=== PATIENT | female | born 1945 | race Caucasian/White ===

== ENCOUNTER 2022-01-16 11:15 | Outpatient (RCR) | payer MEDICARE, BC, SELFPAY | END 2022-08-14 16:20 | disposition home or self-care (01) | PROVIDERS: PCP Family Medicine; Visit Provider Family Medicine | DX: G60.8 Other hereditary and idiopathic neuropathies (principal); R26.9 Unspecified abnormalities of gait and mobility; Z51.89 Encounter for other specified aftercare | CPT/HCPCS: 97110; 97162 ==

== ENCOUNTER 2022-08-13 11:24 | Emergency (ER) | payer MEDICARE, BC, SELFPAY ==
[2022-08-13 11:27] VITALS: BP 153/72; PULSE 74; RESP 18; TEMP 37; O2SAT 97; BMI 29.7
--- NOTE | 2022-08-13 14:10 | CRLHL7_ITS ---
For Patients: As a result of the Cures Act, medical imaging exams and procedure reports are released immediately into your electronic medical record. You may view this report before your referring provider. If you have questions, please contact your health care provider. INDICATION: right calf pain, recent long travel TECHNIQUE: Ultrasound venous duplex right lower extremity. COMPARISON: None. FINDINGS: The right common femoral, superficial femoral, deep femoral, popliteal, posterior tibial, and greater saphenous veins are fully compressible with normal waveforms. The contralateral left common femoral artery is fully compressible with normal waveform. No masses evident. IMPRESSION: Normal ultrasound of the right lower extremity veins. Dictated by: Natan Rizzo MD @ 08/13/2022 15:30:21 (Electronically Signed)
--- NOTE | 2022-08-13 15:43 | ED_ITS ---
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 Emilee notes that she walks on the treadmill regularly and that yesterday she had the onset of right calf pain that was severe enough that she did not sleep overnight. She notes that in the past she has sought medical attention for right ankle pain and was told it was arthritis. She cannot recall any specific injury to the ankle or Achilles tendon while walking on the treadmill but had recently traveled an extensive distance to [place] via car and of course was worried about DVT. She does not have any shortness of breath fever or chills. Upon initial presentation there was an extended wait in the emergency room and an ultrasound was ordered prior to me seeing her in the hopes of expediting her visit to the emergency room. Eventually upon her return from ultrasound she was moved to [place] [id number]. I did just receive the results of her ultrasound when I was contacted by the nurse stating that Emilee was threatening to leave. I did speak with Emilee explaining about the weight and apologizing for her weight. She states to me ?I have been here for fucking hours and I just want to go?. Upon further discussion she states she feels really bad that there are a lot of legitimate emergencies here and that she is taking up are time. She agrees to talk to me and allows me to do an examination. Related Data Home Medications Medication Instructions Recorded Confirmed amlodipine 10 mg tablet 10 mg PO DAILY 07/23/22 08/13/22 atorvastatin 10 mg tablet 10 mg PO DAILY 07/23/22 08/13/22 furosemide 20 mg tablet 20 mg PO BID 07/23/22 08/13/22 gabapentin 400 mg capsule 400 mg PO 3XD 07/23/22 08/13/22 losartan 100 mg tablet 100 mg PO DAILY 07/23/22 08/13/22 Allergies Allergy/AdvReac Type Severity Reaction Status Date / Time ibuprofen Allergy Unknown Verified 07/23/22 18:50 lisinopril Allergy Unknown Verified 07/23/22 18:50 meperidine [From Demerol] Allergy Unknown Verified 07/23/22 18:50 Review of Systems Narrative: No cough cold difficulty breathing no known injury a. Not currently on any anticoagulation area. She denies any redness or infection in that area. [facility] Social History Smoking Status: Former smoker Do you use any of these nicotine containing products: None Second hand tobacco smoke exposure: No How often do you have a drink containing alcohol: monthly or less How many standard drinks containing alcohol do you have on a typical day: 1 or 2 How often do you have six or more drinks on one occasion: Never AUDIT-C Alcohol total score: 1 Non-prescribed substance use: denies use service: No Exam Narrative: Exam Narrative: Emilee is alert and oriented. She seems very frustrated. She reiterates that she is not mad at us and she feels bad that she is taking time away from others. I have tried to reassure her that I see everyone who comes to the emergency room and I do apologize for her extended wait. She is nontoxic in appearance. She does have a limp when walking. Examination of her ankle shows no edema. Palpation over the heel, Achilles tendon insertion yields no tenderness. She does not have any significant tenderness with palpation over the lower gastroc/soleus but with dorsiflexion of the ankle her pain does increase. No respiratory distress. Mentation is normal. Const: Vital Signs, click to edit/add: Vital Signs - 24 hr 08/13/22 11:27 Temperature 98.6 F Pulse Rate [Right Pulse Oximeter] 74 Respiratory Rate 18 Blood Pressure [Ri ght Upper Arm] 153/72 H Pulse Oximetry 97 Oxygen Delivery Me thod Room Air Documenting provider has reviewed patient's vital signs: yes Course Vital Signs Vital signs: Initial Vital Signs Temperature 98.6 F 08/13/22 11:27 Temperature Source Temporal Artery Scan 08/13/22 11:27 Pulse Rate 74 08/13/22 11:27 Pulse Rhythm Regular 08/13/22 11:27 Respiratory Rate 18 08/13/22 11:27 Blood Pressure 153/72 H 08/13/22 11:27 Blood Pressure Mean 99 08/13/22 11:27 Blood Pressure Position Sitting 08/13/22 11:27 Pulse Oximetry 97 08/13/22 11:27 Oxygen Delivery Method Room Air 08/13/22 11:27 Vital Signs Temperature 98.6 F 08/13/22 11:27 Pulse Rate 74 08/13/22 11:27 Respiratory Rate 18 08/13/22 11:27 Blood Pressure 153/72 H 08/13/22 11:27 Pulse Oximetry 97 08/13/22 11:27 Oxygen Delivery Method Room Air 08/13/22 11:27 Temperature 98.6 F 08/13/22 11:27 Pulse Rate 74 08/13/22 11:27 Respiratory Rate 18 08/13/22 11:27 Blood Pressure 153/72 H 08/13/22 11:27 Pulse Oximetry 97 08/13/22 11:27 Oxygen Delivery Method Room Air 08/13/22 11:27 MDM - Extremity Injury (Lower) MDM Narrative Medical decision making narrative: 1. Right calf strain-at this time there is no evidence of DVT or fluid which could be associated with plantaris rupture. I would like patient to treat this as a strain with ice and gentle stretching. I have tried to stress the importance of dorsiflexion during healing time to ensure that fibers heal in its on long gated state. Recommend anti-inflammatory such as ibuprofen or Aleve for discomfort. Patient notes that she will be taking Benadryl to help her with sleep tonight. If she does not improve would have her follow up the primary as she may need further evaluation. 2. Disposition-patient leaves after verbal discharge. She does not want to wait any further. I certainly understand her frustration given long wait times today. Medical Records Attestation: I reviewed the patient's medical records. Imaging Data Venous US: Attestation: I have reviewed the pertinent imaging results. Radiologist's impression: The right common femoral, superficial femoral, deep femoral, popliteal, posterior tibial, and greater saphenous veins are fully compressible with normal waveforms. The contralateral left common femoral artery is fully compressible with normal waveform. No masses evident. IMPRESSION: Normal ultrasound of the right lower extremity veins. Discharge Plan Discharge Clinical Impression: Calf pain Patient Disposition: Home, Self-Care Condition: Unchanged Additional Instructions: Verbal discharge given. Includes icing. Importance of De Jesus flexion to avoid healing in the muscular script shorten state. Recommend ibuprofen or Aleve as needed for discomfort. Follow-up with primary MD for ongoing issues. Prescriptions: No Action furosemide 20 mg tablet 20 mg PO BID losartan 100 mg tablet 100 mg PO DAILY amlodipine 10 mg tablet 10 mg PO DAILY gabapentin 400 mg capsule 400 mg PO 3XD atorvastatin 10 mg tablet 10 mg PO DAILY Follow Up/Referrals: Provider,Not a Local [Primary Care Provider] - Stand Alone Forms: [facility] Info Instructions
== END 2022-08-13 16:03 | disposition home or self-care (01) ==
PROVIDERS: Emergency Provider Family Medicine
DX: S86.911A Strain of unspecified muscle(s) and tendon(s) at lower leg level, right leg, initial encounter (principal)
CPT/HCPCS: 93971; 99283